=== PATIENT | male | born 2000 | race Caucasian/White ===

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

== ENCOUNTER 2023-01-02 12:53 | Emergency (ER) | payer OTHER ==
--- NOTE | 2023-01-02 13:40 | ED ---
General Adult HPI - General Source: patient, RN notes reviewed Mode of arrival: ambulatory Limitations: no limitations <Curly Garvin - Last Filed: 01/02/23 13:39> <Cecily Edmonds - Last Filed: 01/02/23 19:24> - General Stated complaint: Vomiting w/Blood Time Seen by Provider: 01/02/23 13:39 - History of Present Illness Initial comments: 22-year-old male presents emergency department to complaint of nausea vomiting dehydration. Patient states not been keeping down for last 2 days. Patient states he vomited this morning and noticed bright red blood. Patient does complain of epigastric pain. He states he had an issue in the past which she was told it could be from smoking marijuana. Patient denies a diarrhea no sick contacts. Patient offers no complaints. (Curly Garvin) The patient's and otherwise healthy 22-year-old male presents emergency room with complaints of nausea and vomiting for the last 2 days. he also complains of abdominal pain that started prior to the vomiting as well. Patient denies any fevers or diarrhea. Denies any recent travel or sick contacts. He denies any history of other GI issues. Patient has been diagnosed with the cannaboid hyperemesis in the past and states this feels similar. (Cecily Edmonds) - Related Data Previous Rx's Medication Instructions Recorded Metoclopramide [Reglan] 10 mg PO TID PRN #15 tab 01/02/23 Sucralfate [Carafate] 1 gm PO ACHS #12 ml 01/02/23 Allergies Allergy/AdvReac Type Severity Reaction Status Date / Time No Known Allergies Allergy Verified 01/02/23 14:01 Review of Systems ROS Other: All systems not noted in ROS Statement are negative. <Curly Garvin - Last Filed: 01/02/23 13:39> ROS Other: All systems not noted in ROS Statement are negative. <Cecily Edmonds - Last Filed: 01/02/23 19:24> ROS Statement: Those systems with pertinent positive or pertinent negative responses have been documented in the HPI. General Exam <Curly Garvin - Last Filed: 01/02/23 13:39> Limitations: no limitations General appearance: alert, in no apparent distress Head exam: Present: atraumatic Eye exam: Present: normal appearance, PERRL ENT exam: Present: normal exam, normal oropharynx Neck exam: Present: normal inspection Respiratory exam: Present: normal lung sounds bilaterally Cardiovascular Exam: Present: regular rate, normal rhythm GI/Abdominal exam: Present: soft, tenderness (Mild right lower quadrant abdominal pain. No rebound tenderness. No peritoneal signs. No significant abdominal distention.) Extremities exam: Present: full ROM Back exam: Present: normal inspection, full ROM Neurological exam: Present: alert, oriented X3, CN II-XII intact Psychiatric exam: Present: normal affect, normal mood Skin exam: Present: warm, dry <Cecily Edmonds - Last Filed: 01/02/23 19:24> - General Exam Comments Initial Comments: Visual Physical Exam Vital signs reviewed General: Well-appearing, nontoxic, no acute distress. Head: Normocephalic, atraumatic Eyes: PERRLA, EOMI ENT: Airway patent Chest: Nonlabored breathing Skin: No visual rash, normal skin tone Neuro: Alert and oriented 3 Musculoskeletal: No gross abnormalities (Curly Garvin) Course <Cecily Edmonds - Last Filed: 01/02/23 19:24> Vital Signs 01/02/23 01/02/23 13:58 18:22 Temperature 98.2 F Pulse Rate 66 56 L Respiratory 16 18 Rate Blood Pressure 129/80 108/66 O2 Sat by Pulse 99 96 Oximetry - Reevaluation(s) Reevaluation #1: 01/02/23 18:10 Patient is feeling better after medications. He received IV fluids. He is up moving around without any further vomiting or pain. Patient will be discharged home with [facility] medicine. 01/02/23 19:20 (Cecily Edmonds) Medical Decision Making <Curly Garvin - Last Filed: 01/02/23 13:39> - Lab Data Result diagrams: 01/02/23 14:37 01/02/23 14:37 - Radiology Data Radiology results: report reviewed, image reviewed <Cecily Edmonds - Last Filed: 01/02/23 19:24> - Medical Decision Making I performed a quick note portion of this chart signed Curly Garvin PA-C (Curly Garvin) Was pt. sent in by a medical professional or institution ([facility], [facility], urgent care, hospital, or correction...) When possible be specific @ -[No] Did you speak to anyone other than the patient for history (EMS, parent, family, police, friend...)? What history was obtained from this source @ -[No] Did you review nursing and triage notes (agree or disagree)? Why? @ -[I reviewed and agree with nursing and triage notes] Were old charts reviewed (outside hosp., previous admission, EMS record, old EKG, old radiological studies, urgent care reports/EKG's, correction records)? Report findings @ -[No old charts were reviewed] Differential Diagnosis (chest pain, altered mental status, abdominal pain women, abdominal pain men, vaginal bleeding, weakness, fever, dyspnea, syncope, headache, dizziness, GI bleed, back pain, seizure, CVA, palpatations, mental health, musculoskeletal)? @ -Vomiting, gastritis, appendicitis, [place] and hyperemesis EKG interpreted by me (3pts min.). @ -[As above] X-rays interpreted by me (1pt min.). @ -[None done] CT interpreted by me (1pt min.). @ -CT is negative for any obvious appendicitis mass, bowel obstruction or other acute changes. Radiology report is pending for confirmation of these changes U/S interpreted by me (1pt. min.). @ -[None done] What testing was considered but not performed or refused? (CT, X-rays, U/S, labs)? Why? @ -[None] What meds were considered but not given or refused? Why? @ -[None] Did you discuss the management of the patient with other professionals (professionals i.e. , PA, [facility], lab, RT, psych nurse, social media manager, agricultural chemicals inspector, teacher, commercial escrow officer, case management social worker)? Give summary @ -Discussed patient's symptoms are And disposition with attending ED physician Dr. esteves Was smoking cessation discussed for >3mins.? @ -[No] Was critical care preformed (if so, how long)? @ -[No] Were there social determinants of health that impacted care today? How? (Homelessness, low income, unemployed, alcoholism, drug addiction, transportation, low edu. Level, literacy, decrease access to med. care, prison, rehab)? @ -[No] Was there de-escalation of care discussed even if they declined (Discuss DNR or withdrawal of care, Hospice)? DNR status @ -[No] What co-morbidities impacted this encounter? (DM, HTN, Smoking, COPD, CAD, Cancer, CVA, ARF, Chemo, Hep., AIDS, mental health diagnosis, sleep apnea, morbid obesity)? @ -[None] Was patient admitted / discharged? Hospital course, mention meds given and route, prescriptions, significant lab abnormalities, going to OR and other pertinent info. @ -Patient is feeling better after IV medications and IV fluids. Tolerated fluids prior to discharge. I discussed management at home with the patient. There is no indication for hospitalization is required at this time. Undiagnosed new problem with uncertain prognosis? @ -[No] Drug Therapy requiring intensive monitoring for toxicity (Heparin, Nitro, Insulin, Cardizem)? @ -[No] Were any procedures done? @ -[No] Diagnosis/symptom? @ -cannaboid hyperemesis, vomiting, abdominal pain, drug abuse Acute, or Chronic, or Acute on Chronic? @ -Acute Uncomplicated (without systemic symptoms) or Complicated (systemic symptoms)? @ -Uncomplicated Side effects of treatment? @ -[No] Exacerbation, Progression, or Severe Exacerbation? @ -[No] Poses a threat to life or bodily function? How? (Chest pain, USA, [place], pneumonia, PE, COPD, DKA, ARF, appy, cholecystitis, CVA, Diverticulitis, Homicidal, Suicidal, threat to staff... and all critical care pts) @ -[No] (Cecily Edmonds) - Lab Data Lab Results 01/02/23 01/02/23 Range/Units 14:37 14:37 WBC 17.4 H (4.0-11.0) k/uL RBC 6.08 H (4.30-5.90) m/uL Hgb 17.9 H (13.0-17.5) gm/dL Hct 50.7 (39.0-53.0) % MCV 83.3 (80.0-100.0) fL MCH 29.4 (25.0-35.0) pg MCHC 35.3 (31.0-37.0) g/dL RDW 12.2 (11.5-15.5) % Plt Count 385 (150-450) k/uL MPV 7.0 Neutrophils % 81 % Lymphocytes % 8 % Monocytes % 9 % Eosinophils % 1 % Basophils % 0 % Neutrophils # 14.1 H (1.3-7.7) k/uL Lymphocytes # 1.4 (1.0-4.8) k/uL Monocytes # 1.5 H (0-1.0) k/uL Eosinophils # 0.1 (0-0.7) k/uL Basophils # 0.0 (0-0.2) k/uL Sodium 140 (137-145) mmol/L Potassium 3.8 (3.5-5.1) mmol/L Chloride 91 L (98-107) mmol/L Carbon Dioxide 28 (22-30) mmol/L Anion Gap 21 mmol/L BUN 35 H (9-20) mg/dL Creatinine 1.12 (0.66-1.25) mg/dL Est GFR (CKD-EPI)AfAm >90 (>60 ml/min/1.73 sqM) Est GFR (CKD-EPI)NonAf >90 (>60 ml/min/1.73 sqM) Glucose 125 H (74-99) mg/dL Calcium 11.0 H (8.4-10.2) mg/dL Total Bilirubin 1.9 H (0.2-1.3) mg/dL AST 26 (17-59) U/L ALT 30 (4-49) U/L Alkaline Phosphatase 91 (38-126) U/L Total Protein 9.5 H (6.3-8.2) g/dL Albumin 5.8 H (3.5-5.0) g/dL Lipase 45 (23-300) U/L Disposition <Curly Garvin - Last Filed: 01/02/23 13:39> Is patient prescribed a controlled substance at d/c from ED?: No If prescribed controlled substance>3 days was MAPS reviewed?: No Time of Disposition: 19:23 <Cecily Edmonds - Last Filed: 01/02/23 19:24> Clinical Impression: Cannabinoid hyperemesis syndrome, Vomiting, Drug abuse Disposition: HOME SELF-CARE Condition: Good Instructions (If sedation given, give patient instructions): Acute Nausea and Vomiting (ED), Hyperemesis Gravidarum (ED), Dehydration (ED) Referrals: Joseph Dias [Primary Care Provider] - 1-2 days
[2023-01-02 14:08] VITALS: TEMP 98.2
[2023-01-02 14:50] LABS: Basophils % (A) 0 %; Eosinophils # (A) 0.1 k/uL (0-0.7); Eosinophils % (A) 1 %; HCT 50.7 % (39.0-53.0); HGB 17.9 gm/dL (13.0-17.5); Lymphocytes # (A) 1.4 k/uL (1.0-4.8); Lymphocytes % (A) 8 %; MCH 29.4 pg (25.0-35.0); MCHC 35.3 g/dL (31.0-37.0); MCV 83.3 fL (80.0-100.0); Monocytes # (A) 1.5 k/uL (0-1.0); Monocytes % (A) 9 %; Neutrophils # (A) 14.1 k/uL (1.3-7.7); Neutrophils % (A) 81 %; Platelet Count 385 k/uL (150-450); RBC 6.08 m/uL (4.30-5.90); RDW 12.2 % (11.5-15.5); WBC 17.4 k/uL (4.0-11.0)
[2023-01-02 15:03] LABS: ALT 30 U/L (4-49); AST 26 U/L (17-59); African American GFR (CKD) >90 (>60 ml/min/1.73 sqM); Albumin 5.8 g/dL (3.5-5.0); Alkaline Phosphatase 91 U/L (38-126); Anion Gap 21 mmol/L; Blood Urea Nitrogen 35 mg/dL (9-20); Carbon Dioxide 28 mmol/L (22-30); Chloride 91 mmol/L (98-107); Glucose 125 mg/dL (74-99); Lipase 45 U/L (23-300); Non-African American GFR(CKD) >90 (>60 ml/min/1.73 sqM); Potassium 3.8 mmol/L (3.5-5.1); Sodium 140 mmol/L (137-145); Total Bilirubin 1.9 mg/dL (0.2-1.3); Total Protein 9.5 g/dL (6.3-8.2)
[2023-01-02] MEDS ORDERED: SODIUM CHLORIDE 0.9% 1,000 ML IV ONE (15:47)
[2023-01-02] MEDS ORDERED: METOCLOPRAMIDE 5 MG/ML 2 ML VIAL IVP STA (15:47)
[2023-01-02] MEDS ORDERED: PANTOPRAZOLE 40 MG/10 ML VIAL IVP STA (15:48)
[2023-01-02] MEDS ORDERED: diphenhydrAMINE 50 MG/ML 1 ML VIAL IVP STA (16:23)
--- NOTE | 2023-01-02 17:43 | CT ---
EXAMINATION TYPE: CT abdomen pelvis w con CT DLP: 567.80 mGycm, Automated exposure control for dose reduction was used. DATE OF EXAM: 01/02/2023 5:02 PM COMPARISON: None CLINICAL INDICATION:Male, 22 years old with history of RLQ pain; RLQ PAIN ADN RECTAL BLEEDING. TECHNIQUE: Axial CT of the abdomen and pelvis. Sagittal and coronal reformats were created on a [employer] workstation. Contrast used:100 mL of Isovue 300 with IV Contrast, (none if empty) Oral contrast used: without Oral Contrast (none if empty) FINDINGS: LOWER CHEST: Unremarkable ABDOMEN LIVER: Focal fatty infiltration adjacent to the falciform ligament in segment IVb GALLBLADDER AND BILE DUCTS: Unremarkable. PANCREAS: Unremarkable. SPLEEN: Unremarkable. ADRENAL GLANDS: Unremarkable. KIDNEYS AND URETERS: No evidence of hydronephrosis or renal calculus. The ureters are unremarkable. PELVIS BLADDER: Unremarkable REPRODUCTIVE: Unremarkable. ABDOMEN & PELVIS STOMACH AND BOWEL: No evidence of bowel obstruction. The appendix appears normal. Incompletely disten ded colon noted. PERITONEUM/RETROPERITONEUM: No evidence of pneumoperitoneum or free fluid. VASCULATURE: No evidence of aortic aneurysm. MUSCULOSKELETAL: No acute osseous abnormalities LYMPH NODES: No gross evidence for lymphadenopathy. SOFT TISSUE/ABDOMINAL WALL: Unremarkable IMPRESSION: Incompletely distended: No evidence of gastrointestinal hemorrhage. No definitive acute abdominal pro cess. The appendix is normal. There is no obstructive uropathy.
[2023-01-02 18:28] VITALS: BP 108/66; PULSE 56; RESP 18
[2023-01-02 18:32] LABS: Appearance,Urine Clear (Clear); Bilirubin,Urine Negative (Negative); Blood,Urine Negative (Negative); Color,Urine Colorless; Glucose,Urine (UA) Negative (Negative); Ketones,Urine 3+ (Negative); Leukocyte Esterase,Urine Negative (Negative); Nitrite,Urine Negative (Negative); Protein,Urine Trace (Negative); Urobilinogen,Urine <2.0 mg/dL (<2.0)
[2023-01-02 19:11] LABS: Specific Gravity,Urine >1.050 (1.001-1.035)
[2023-01-02 19:12] LABS: Amphetamine Screen,Urine Detected (NotDetected); Barbiturate Screen,Urine Not Detected (NotDetected); Benzodiazepines Screen,Urine Detected (NotDetected); Cocaine Screen,Urine Not Detected (NotDetected); Methadone Screen, Urine Not Detected (NotDetected); Opiate Screen,Urine Not Detected (NotDetected); Oxycodone Screen, Urine Not Detected (NotDetected); Phencyclidine Screen,Urine Not Detected (NotDetected); Tricyclic Antidepressant,Urine Detected (NotDetected); Urn Cannabinoid Scrn Detected (NotDetected)
== END 2023-01-02 19:53 | disposition home or self-care (01) ==
LOC: EC 12:53
DX: F12.90 Cannabis use, unspecified, uncomplicated (principal); F19.10 Other psychoactive substance abuse, uncomplicated; R11.2 Nausea with vomiting, unspecified; R10.31 Right lower quadrant pain
CPT/HCPCS: 36415; 80053; 83690; 85025; 81003; 80306; 74177; 99284; 96374; 96375 ×2; 96361; J1200; J2765; C9113; Q9967

== ENCOUNTER 2023-01-04 09:07 | Emergency (ER) | payer OTHER ==
[2023-01-04] MEDS ORDERED: ONDANSETRON 4 MG/2 ML VIAL IVP STA (09:32)
[2023-01-04] MEDS ORDERED: PANTOPRAZOLE 40 MG/10 ML VIAL IVP STA (09:32)
[2023-01-04] MEDS ORDERED: MORPHINE SULFATE 4 MG/ML SYRINGE IVP STA (09:32)
[2023-01-04] MEDS ORDERED: SODIUM CHLORIDE 0.9% 1,000 ML IV ONE (09:32)
--- NOTE | 2023-01-04 09:38 | ED ---
General Adult HPI - General Chief complaint: Abdominal Pain Stated complaint: vomiting Time Seen by Provider: 01/04/23 09:24 Source: patient, RN notes reviewed, old records reviewed Mode of arrival: wheelchair - History of Present Illness Initial comments: 22-year-old male presents for evaluation nausea vomiting. Patient has had multiple episodes of vomiting over the past 24-48 hours. He was seen in the emergency department yesterday had workup including laboratory testing and CT of the abdomen and pelvis. Patient states he continues to vomit. He does have upper abdominal pain associated with his mom he says that there has been some blood in his vomit although currently his vomit is clear yellow. Patient reports marijuana use and states he has been told in the past that his vomiting was related to marijuana use. - Related Data Previous Rx's Medication Instructions Recorded Metoclopramide [Reglan] 10 mg PO TID PRN #15 tab 01/02/23 Sucralfate [Carafate] 1 gm PO ACHS #12 ml 01/02/23 Allergies Allergy/AdvReac Type Severity Reaction Status Date / Time No Known Allergies Allergy Verified 01/04/23 09:22 Review of Systems ROS Statement: Those systems with pertinent positive or pertinent negative responses have been documented in the HPI. ROS Other: All systems not noted in ROS Statement are negative. Past Medical History Past Medical History: No Reported History History of Any Multi-Drug Resistant Organisms: None Reported Past Surgical History: No Surgical Hx Reported Past Psychological History: No Psychological Hx Reported Smoking Status: Never smoker, Vaper Past Alcohol Use History: None Reported Past Drug Use History: Marijuana General Exam General appearance: alert, in no apparent distress Head exam: Present: atraumatic, normocephalic Eye exam: Present: normal appearance, PERRL ENT exam: Present: mucous membranes dry Neck exam: Present: normal inspection Respiratory exam: Present: normal lung sounds bilaterally. Absent: respiratory distress, wheezes Cardiovascular Exam: Present: regular rate, normal rhythm GI/Abdominal exam: Present: soft. Absent: distended, tenderness, guarding, rebound Extremities exam: Present: normal inspection, normal capillary refill Neurological exam: Present: alert, oriented X3, CN II-XII intact. Absent: motor sensory deficit Psychiatric exam: Present: normal affect, normal mood Skin exam: Present: warm, dry, intact Course Vital Signs 01/04/23 01/04/23 01/04/23 09:16 10:00 11:16 Temperature 98.5 F Pulse Rate 57 L 56 L 50 L Respiratory 18 18 17 Rate Blood Pressure 143/75 150/83 145/97 O2 Sat by Pulse 99 100 97 Oximetry Medical Decision Making - Medical Decision Making Was pt. sent in by a medical professional or institution (, [facility], [employer], urgent care, hospital, or retirement...) When possible be specific @ -No Did you speak to anyone other than the patient for history (EMS, parent, family, police, friend...)? What history was obtained from this source @ -No Did you review nursing and triage notes (agree or disagree)? Why? @ -I reviewed and agree with nursing and triage notes Were old charts reviewed (outside hosp., previous admission, EMS record, old EKG, old radiological studies, urgent care reports/EKG's, retirement records)? Report findings @CT reviewed from yesterday Differential Diagnosis (chest pain, altered mental status, abdominal pain women, abdominal pain men, vaginal bleeding, weakness, fever, dyspnea, syncope, heada caitlin, dizziness, GI bleed, back pain, seizure, CVA, palpatations, mental health, musculoskeletal)? @ Differential Abdominal Pain Men: Appendicitis, cholecystitis, diverticulosis, ischemic bowel, pancreatitis, hepatitis, UTI, gastroenteritis, AAA, incarcerated hernia, bowel obstruction, constipation, inflammatory bowel, hepatitis, peptic ulcer disease, splenic infarction, perforated viscus, testicular torsion, this is not meant to be an all-inclusive list EKG interpreted by me (3pts min.). @ -As above X-rays interpreted by me (1pt min.). @ -None done CT interpreted by me (1pt min.). @ -None done U/S interpreted by me (1pt. min.). @ -None done What testing was considered but not performed or refused? (CT, X-rays, U/S, labs)? Why? @ -None What meds were considered but not given or refused? Why? @ -None Did you discuss the management of the patient with other professionals (professionals i.e. [facility] Figueroa, COMMERCIAL INTERN, lab, RT, psych nurse, social media strategist, upper marker, teacher, upscale security officer, case management manager)? Give summary @ -No Was smoking cessation discussed for >3mins.? @ -No Was critical care preformed (if so, how long)? @ -No Were there social determinants of health that impacted care today? How? (Homelessness, low income, unemployed, alcoholism, drug addiction, transportation, low edu. Level, literacy, decrease access to med. care, penitentiary, rehab)? @ -No Was there de-escalation of care discussed even if they declined (Discuss DNR or withdrawal of care, Hospice)? DNR status @ -No What co-morbidities impacted this encounter? (DM, HTN, Smoking, COPD, CAD, Cancer, CVA, ARF, Chemo, Hep., AIDS, mental health diagnosis, sleep apnea, morbid obesity)? @ -[Marijuana use Was patient admitted / discharged? Hospital course, mention meds given and route, prescriptions, significant lab abnormalities, going to OR and other pertinent info. @ -[22-year-old male with recurrent nausea vomiting. Patient did receive symptomatic treatment including antiemetics, pain medication, proton pump inhibi tor and IV fluids. He has improved CBC, no leukocytosis, stable hemoglobin. He has minor acidosis without significant electrolyte abnormality. His urinalysis is pending. Patient reevaluated and does feel symptoms are improved. Patient is instructed to abstain from marijuana use, maintain oral hydration, and follow with his primary care provider as well as gastroenterology. Undiagnosed new problem with uncertain prognosis? @ -No Drug Therapy requiring intensive monitoring for toxicity (Heparin, Nitro, Insulin, Cardizem)? @ -No Were any procedures done? @ -No Diagnosis/symptom? @Nausea vomiting Acute, or Chronic, or Acute on Chronic? @ -Acute on chronic Uncomplicated (without systemic symptoms) or Complicated (systemic symptoms)? @ -default Side effects of treatment? @ -No Exacerbation, Progression, or Severe Exacerbation? @ -No Poses a threat to life or bodily function? How? (Chest pain, [place], [place], pneumonia, PE, COPD, DKA, ARF, appy, cholecystitis, CVA, Diverticulitis, Homicidal, Suicidal, threat to staff... and all critical care pts) @ -[Yes, mild risk at this time of dehydration and electrolyte abnormality - Lab Data Result diagrams: 01/04/23 09:34 01/04/23 09:34 Lab Results 01/04/23 01/04/23 Range/Units 09:34 09:34 WBC 7.7 (4.0-11.0) k/uL RBC 5.71 (4.30-5.90) m/uL Hgb 17.3 (13.0-17.5) gm/dL Hct 47.3 (39.0-53.0) % MCV 82.9 (80.0-100.0) fL MCH 30.4 (25.0-35.0) pg MCHC 36.6 (31.0-37.0) g/dL RDW 12.1 (11.5-15.5) % Plt Count 304 (150-450) k/uL MPV 6.9 Neutrophils % 56 % Lymphocytes % 32 % Monocytes % 8 % Eosinophils % 1 % Basophils % 1 % Neutrophils # 4.3 (1.3-7.7) k/uL Lymphocytes # 2.5 (1.0-4.8) k/uL Monocytes # 0.6 (0-1.0) k/uL Eosinophils # 0.1 (0-0.7) k/uL Basophils # 0.0 (0-0.2) k/uL Sodium 135 L (137-145) mmol/L Potassium 3.7 (3.5-5.1) mmol/L Chloride 97 L (98-107) mmol/L Carbon Dioxide 20 L (22-30) mmol/L Anion Gap 18 mmol/L BUN 22 H (9-20) mg/dL Creatinine 0.69 (0.66-1.25) mg/dL Est GFR (CKD-EPI)AfAm >90 (>60 ml/min/1.73 sqM) Est GFR (CKD-EPI)NonAf >90 (>60 ml/min/1.73 sqM) Glucose 126 H (74-99) mg/dL Calcium 9.8 (8.4-10.2) mg/dL Magnesium 2.1 (1.6-2.3) mg/dL Total Bilirubin 2.5 H (0.2-1.3) mg/dL AST 33 (17-59) U/L ALT 28 (4-49) U/L Alkaline Phosphatase 75 (38-126) U/L Total Protein 8.4 H (6.3-8.2) g/dL Albumin 5.0 (3.5-5.0) g/dL Disposition Clinical Impression: Cannabinoid hyperemesis syndrome, Vomiting Disposition: HOME SELF-CARE Condition: Fair Is patient prescribed a controlled substance at d/c from ED?: No Referrals: Joseph Dias [Primary Care Provider] - 1-2 days Elo Franz MD [STAFF PHYSICIAN] - 1-2 days Time of Disposition: 11:36
[2023-01-04 09:52] LABS: Basophils % (A) 1 %; Eosinophils # (A) 0.1 k/uL (0-0.7); Eosinophils % (A) 1 %; HCT 47.3 % (39.0-53.0); HGB 17.3 gm/dL (13.0-17.5); Lymphocytes # (A) 2.5 k/uL (1.0-4.8); Lymphocytes % (A) 32 %; MCH 30.4 pg (25.0-35.0); MCHC 36.6 g/dL (31.0-37.0); MCV 82.9 fL (80.0-100.0); Mean Platelet Volume 6.9; Monocytes # (A) 0.6 k/uL (0-1.0); Monocytes % (A) 8 %; Neutrophils # (A) 4.3 k/uL (1.3-7.7); Neutrophils % (A) 56 %; Platelet Count 304 k/uL (150-450); RBC 5.71 m/uL (4.30-5.90); RDW 12.1 % (11.5-15.5); WBC 7.7 k/uL (4.0-11.0)
[2023-01-04 10:02] LABS: ALT 28 U/L (4-49); African American GFR (CKD) >90 (>60 ml/min/1.73 sqM); Anion Gap 18 mmol/L; Blood Urea Nitrogen 22 mg/dL (9-20); Calcium 9.8 mg/dL (8.4-10.2); Carbon Dioxide 20 mmol/L (22-30); Chloride 97 mmol/L (98-107); Glucose 126 mg/dL (74-99); Non-African American GFR(CKD) >90 (>60 ml/min/1.73 sqM); Sodium 135 mmol/L (137-145); Total Bilirubin 2.5 mg/dL (0.2-1.3); Total Protein 8.4 g/dL (6.3-8.2)
[2023-01-04 10:29] LABS: AST 33 U/L (17-59); Alkaline Phosphatase 75 U/L (38-126)
[2023-01-04 10:30] LABS: Magnesium 2.1 mg/dL (1.6-2.3); Potassium 3.7 mmol/L (3.5-5.1)
[2023-01-04] MEDS ORDERED: KETOROLAC 15 MG/ML 1 ML VIAL IVP STA (11:41)
[2023-01-04 11:57] VITALS: BP 163/97; PULSE 57; RESP 18; TEMP 98.1
[2023-01-04 12:24] LABS: Amorphous Sediment,Urine Rare /hpf; Appearance,Urine Cloudy (Clear); Bacteria,Urine Rare /hpf; Bilirubin,Urine Negative (Negative); Blood,Urine Negative (Negative); Color,Urine Colorless; Glucose,Urine (UA) Negative (Negative); Ketones,Urine 2+ (Negative); Leukocyte Esterase,Urine Negative (Negative); Mucus,Urine Rare /hpf; Nitrite,Urine Negative (Negative); Protein,Urine Negative (Negative); Specific Gravity,Urine 1.014 (1.001-1.035); Urobilinogen,Urine <2.0 mg/dL (<2.0); WBC,Urine <1 /hpf (0-5)
[2023-01-04 12:30] LABS: Amphetamine Screen,Urine Not Detected (NotDetected); Benzodiazepines Screen,Urine Not Detected (NotDetected); Cocaine Screen,Urine Not Detected (NotDetected); Opiate Screen,Urine Detected (NotDetected); Phencyclidine Screen,Urine Not Detected (NotDetected); Urn Cannabinoid Scrn Detected (NotDetected)
[2023-01-04 12:31] LABS: Barbiturate Screen,Urine Not Detected (NotDetected); Methadone Screen, Urine Not Detected (NotDetected); Oxycodone Screen, Urine Not Detected (NotDetected); Tricyclic Antidepressant,Urine Not Detected (NotDetected)
== END 2023-01-04 12:17 | disposition home or self-care (01) ==
LOC: EC 09:07
DX: R11.10 Vomiting, unspecified (principal); F17.290 Nicotine dependence, other tobacco product, uncomplicated; F12.90 Cannabis use, unspecified, uncomplicated
CPT/HCPCS: 36415; 80053; 83735; 85025; 81001; 80306; 99284; 96374; 96375 ×3; 96361; J2270; J2405; J1885; C9113

== ENCOUNTER 2023-01-04 12:19 | Emergency (ER) | payer OTHER ==
[2023-01-04] MEDS ORDERED: ONDANSETRON ODT 4 MG TAB PO STA (12:57)
--- NOTE | 2023-01-04 13:58 | ED ---
General Adult HPI - General Chief complaint: Nausea/Vomiting/Diarrhea Stated complaint: abd pain Time Seen by Provider: 01/04/23 12:48 Source: patient, RN notes reviewed, old records reviewed Mode of arrival: ambulatory Limitations: no limitations - History of Present Illness Initial comments: 22-year-old male presenting for evaluation nausea. No vomiting. Patient states that he would like to rest. He does report persistent pain but states that it is improved from prior. He has nausea without vomiting. No fever. No worsening of symptoms. - Related Data Previous Rx's Medication Instructions Recorded Metoclopramide [Reglan] 10 mg PO TID PRN #15 tab 01/02/23 Sucralfate [Carafate] 1 gm PO ACHS #12 ml 01/02/23 Ondansetron Odt [Zofran Odt] 4 mg PO Q8HR PRN #10 tab 01/04/23 Allergies Allergy/AdvReac Type Severity Reaction Status Date / Time No Known Allergies Allergy Verified 01/04/23 09:22 Review of Systems ROS Statement: Those systems with pertinent positive or pertinent negative responses have been documented in the HPI. ROS Other: All systems not noted in ROS Statement are negative. Past Medical History Past Medical History: No Reported History History of Any Multi-Drug Resistant Organisms: None Reported Past Surgical History: No Surgical Hx Reported Past Psychological History: No Psychological Hx Reported Smoking Status: Never smoker, Vaper Past Alcohol Use History: None Reported Past Drug Use History: Marijuana General Exam Limitations: no limitations General appearance: alert, in no apparent distress Head exam: Present: atraumatic, normocephalic Eye exam: Present: normal appearance, PERRL ENT exam: Present: normal exam Respiratory exam: Present: normal lung sounds bilaterally. Absent: respiratory distress, wheezes Cardiovascular Exam: Present: regular rate, normal rhythm GI/Abdominal exam: Present: soft. Absent: distended, tenderness, guarding, rebound Extremities exam: Present: normal inspection, normal capillary refill Neurological exam: Present: alert, oriented X3, CN II-XII intact. Absent: motor sensory deficit Psychiatric exam: Present: normal affect, normal mood Skin exam: Present: warm, dry, intact. Absent: cyanosis, diaphoretic Course Vital Signs 01/04/23 12:23 Temperature 97.9 F Pulse Rate 58 L Respiratory 16 Rate Blood Pressure 157/93 O2 Sat by Pulse 100 Oximetry Medical Decision Making - Medical Decision Making Was pt. sent in by a medical professional or institution ([facility], [facility], urgent care, hospital, or [place] [facility] facility...) When possible be specific @ -No Did you speak to anyone other than the patient for history (EMS, parent, family, police, friend...)? What history was obtained from this source @ -No Did you review nursing and triage notes (agree or disagree)? Why? @ -I reviewed and agree with nursing and triage notes Were old charts reviewed (outside hosp., previous admission, EMS record, old EKG, old radiological studies, urgent care reports/EKG's, [place] [facility] records)? Report findings @ -No old charts were reviewed Differential Diagnosis (chest pain, altered mental status, abdominal pain women, abdominal pain men, vaginal bleeding, weakness, fever, dyspnea, syncope, headache, dizziness, GI bleed, back pain, seizure, CVA, palpatations, mental health, musculoskeletal)? @Cannabis hyperemesis, nausea vomiting, gastroenteritis EKG interpreted by me (3pts min.). @ -As above X-rays interpreted by me (1pt min.). @ -None done CT interpreted by me (1pt min.). @ -None done U/S interpreted by me (1pt. min.). @ -None done What testing was considered but not performed or refused? (CT, X-rays, U/S, labs)? Why? @ -None What meds were considered but not given or refused? Why? @ -None Did you discuss the management of the patient with other professionals (professionals i.e. [facility] Figueroa, [facility], lab, RT, psych nurse, social media designer, line maintainer, teacher, workers' compensation hearings officer, transplant case manager)? Give summary @ -No Was smoking cessation discussed for >3mins.? @ -No Was critical care preformed (if so, how long)? @ -No Were there social determinants of health that impacted care today? How? (Homelessness, low income, unemployed, alcoholism, drug addiction, transportation, low edu. Level, literacy, decrease access to med. care, long term, rehab)? @ -No Was there de-escalation of care discussed even if they declined (Discuss DNR or withdrawal of care, Hospice)? DNR status @ -No What co-morbidities impacted this encounter? (DM, HTN, Smoking, COPD, CAD, Cancer, CVA, ARF, Chemo, Hep., AIDS, mental health diagnosis, sleep apnea, morbid obesity)? @Marijuana use, recurrent episodes of nausea and vomiting. Was patient admitted / discharged? Hospital course, mention meds given and route, prescriptions, significant lab abnormalities, going to OR and other pertinent info. @ -Patient states symptoms are improved. Allowed to rest in the emergency department, given oral disintegrating Zofran. Will prescribe Zofran and will discharge patient. Undiagnosed new problem with uncertain prognosis? @ -No Drug Therapy requiring intensive monitoring for toxicity (Heparin, Nitro, Insulin, Cardizem)? @ -No Were any procedures done? @ -No Diagnosis/symptom? @ -[Nausea Acute, or Chronic, or Acute on Chronic? @ -chronic Uncomplicated (without systemic symptoms) or Complicated (systemic symptoms)? @ -default Side effects of treatment? @ -No Exacerbation, Progression, or Severe Exacerbation? @ -No Poses a threat to life or bodily function? How? (Chest pain, [place], [place], pneumonia, PE, COPD, DKA, ARF, appy, cholecystitis, CVA, Diverticulitis, Homicidal, Suicidal, threat to staff... and all critical care pts) @ -No Disposition Clinical Impression: Nausea Disposition: HOME SELF-CARE Condition: Fair Instructions (If sedation given, give patient instructions): Acute Nausea and Vomiting (ED) Prescriptions: Ondansetron Odt [Zofran Odt] 4 mg PO Q8HR PRN #10 tab PRN Reason: Vomiting Is patient prescribed a controlled substance at d/c from ED?: No Referrals: Joseph Dias [Primary Care Provider] - 1-2 days Time of Disposition: 14:30
[2023-01-04 15:30] VITALS: BP 119/63; PULSE 56; RESP 18; TEMP 98.2
== END 2023-01-04 15:22 | disposition home or self-care (01) ==
LOC: EC 12:19
DX: R11.2 Nausea with vomiting, unspecified (principal); F12.90 Cannabis use, unspecified, uncomplicated
CPT/HCPCS: 99283

== ENCOUNTER 2023-01-05 08:20 | Emergency (ER) | payer OTHER ==
[2023-01-05 08:29] VITALS: TEMP 97.7
[2023-01-05] MEDS ORDERED: droPERidol 5 MG/2 ML VIAL IVP ONE (08:40)
[2023-01-05] MEDS ORDERED: MAG HYDROX/AL HYDROX/SIMETH 30 ML, HYOSCYAMINE ELIXIR 10 ML, LIDOCAINE 2% GLYDO JELLY 1... PO STA ×3 (08:40)
[2023-01-05] MEDS ORDERED: SODIUM CHLORIDE 0.9% 2,000 ML IV STA (08:40)
[2023-01-05] MEDS ORDERED: FAMOTIDINE 20 MG/2 ML VIAL IV STA (08:40)
--- NOTE | 2023-01-05 09:03 | ED ---
Abdominal Pain HPI - General Chief Complaint: Abdominal Pain Stated Complaint: abd pain Time Seen by Provider: 01/05/23 08:23 Source: patient, RN notes reviewed Mode of arrival: wheelchair Limitations: no limitations - History of Present Illness Initial Comments: 22-year-old male presents emergency from chief nausea vomiting abdominal pain. 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 Patient states she's been told passes from marijuana use. Patient went of epigastric pain, burning sensation. Patient had repeat laboratory studies, CAT scan. Patient states that he cannot tolerate the oral Zofran to tase bad. Patient states that he's continues to have persistent nausea vomiting denies any lower abdominal pain no fever no chest pain. - Related Data Previous Rx's Medication Instructions Recorded Metoclopramide [Reglan] 10 mg PO TID PRN #15 tab 01/02/23 Sucralfate [Carafate] 1 gm PO ACHS #12 ml 01/02/23 Ondansetron Odt [Zofran Odt] 4 mg PO Q8HR PRN #10 tab 01/04/23 Allergies Allergy/AdvReac Type Severity Reaction Status Date / Time No Known Allergies Allergy Verified 01/05/23 08:25 Review of Systems ROS Statement: Those systems with pertinent positive or pertinent negative responses have been documented in the HPI. ROS Other: All systems not noted in ROS Statement are negative. Past Medical History Past Medical History: No Reported History History of Any Multi-Drug Resistant Organisms: None Reported Past Surgical History: No Surgical Hx Reported Past Psychological History: No Psychological Hx Reported Smoking Status: Never smoker, Vaper Past Alcohol Use History: None Reported Past Drug Use History: Marijuana General Exam Limitations: no limitations General appearance: alert, in no apparent distress Head exam: Present: atraumatic, normocephalic, normal inspection Eye exam: Present: normal appearance, PERRL, EOMI. Absent: scleral icterus, conjunctival injection, periorbital swelling ENT exam: Present: normal exam, normal oropharynx, mucous membranes moist Neck exam: Present: normal inspection, full ROM. Absent: tenderness, meningismus, lymphadenopathy Respiratory exam: Present: normal lung sounds bilaterally. Absent: respiratory distress, wheezes, rales, rhonchi, stridor Cardiovascular Exam: Present: regular rate, normal rhythm, normal heart sounds. Absent: systolic murmur, diastolic murmur, rubs, gallop, clicks GI/Abdominal exam: Present: soft, tenderness, normal bowel sounds. Absent: distended, guarding, rebound, rigid Back exam: Absent: CVA tenderness (R), CVA tenderness (L) Course Vital Signs 01/05/23 01/05/23 01/05/23 08:25 08:40 09:27 Temperature 97.7 F Pulse Rate 63 68 86 Respiratory 18 16 20 Rate Blood Pressure 156/95 150/100 113/67 O2 Sat by Pulse 99 98 98 Oximetry Medical Decision Making - Medical Decision Making Was pt. sent in by a medical professional or institution (, [facility], [facility], urgent care, hospital, or [facility]...) When possible be specific @ -No Did you speak to anyone other than the patient for history (EMS, parent, family, police, friend...)? What history was obtained from this source @ -No Did you review nursing and triage notes (agree or disagree)? Why? @ -I reviewed and agree with nursing and triage notes Were old charts reviewed (outside hosp., previous admission, EMS record, old EKG, old radiological studies, urgent care reports/EKG's, [facility] records)? Report findings @ -Reevaluated prior imaging, studies Differential Diagnosis (chest pain, altered mental status, abdominal pain women, abdominal pain men, vaginal bleeding, weakness, fever, dyspnea, syncope, headache, dizziness, GI bleed, back pain, seizure, CVA, palpatations, mental h ealth, musculoskeletal)? @ -Cannabis induced hyperemesis, nausea vomiting, gastric enteritis EKG interpreted by me (3pts min.). @ -None X-rays interpreted by me (1pt min.). @ -None done CT interpreted by me (1pt min.). @ -None done U/S interpreted by me (1pt. min.). @ -None done What testing was considered but not performed or refused? (CT, X-rays, U/S, labs)? Why? @ -None What meds were considered but not given or refused? Why? @ -None Did you discuss the management of the patient with other professionals (professionals i.e. , [facility], [facility]IATOR TESTER, lab, RT, psych nurse, social work assistant, sales training coordinator, teacher, electronic warfare officer, director case)? Give summary @ -No Was smoking cessation discussed for >3mins.? @ -No Was critical care preformed (if so, how long)? @ -No Were there social determinants of health that impacted care today? How? (Homelessness, low income, unemployed, alcoholism, drug addiction, transportation, low edu. Level, literacy, decrease access to med. care, care home, rehab)? @ -No Was there de-escalation of care discussed even if they declined (Discuss DNR or withdrawal of care, Hospice)? DNR status @ -No What co-morbidities impacted this encounter? (DM, HTN, Smoking, COPD, CAD, Cancer, CVA, ARF, Chemo, Hep., AIDS, mental health diagnosis, sleep apnea, morbid obesity)? @ -None Was patient admitted / discharged? Hospital course, mention meds given and route, prescriptions, significant lab abnormalities, going to OR and other pertinent info. @ -Discharge patient's had recurrent emesis related to cannabis use. Patient advised to refrain using cannabis he has Zofran and may use Maalox [id number] for GI upset. Undiagnosed new problem with uncertain prognosis? @ -No Drug Therapy requiring intensive monitoring for toxicity (Heparin, Nitro, Insulin, Cardizem)? @ -No Were any procedures done? @ -No Diagnosis/symptom? @ -Nausea vomiting Acute, or Chronic, or Acute on Chronic? @ -Acute Uncomplicated (without systemic symptoms) or Complicated (systemic symptoms)? @ -Uncomplicated Side effects of treatment? @ -No Exacerbation, Progression, or Severe Exacerbation? @ -No Poses a threat to life or bodily function? How? (Chest pain, [place], [place], pneumonia, PE, COPD, DKA, ARF, appy, cholecystitis, CVA, Diverticulitis, Homicidal, Suicidal, threat to staff... and all critical care pts) @ -No - Lab Data Result diagrams: 01/05/23 08:40 01/05/23 08:40 Lab Results 01/05/23 01/05/23 01/05/23 Range/Units 08:40 08:40 08:47 WBC 10.4 (4.0-11.0) k/uL RBC 5.68 (4.30-5.90) m/uL Hgb 17.0 (13.0-17.5) gm/dL Hct 47.7 (39.0-53.0) % MCV 84.0 (80.0-100.0) fL MCH 30.0 (25.0-35.0) pg MCHC 35.7 (31.0-37.0) g/dL RDW 12.1 (11.5-15.5) % Plt Count 316 (150-450) k/uL MPV 7.0 Neutrophils % 45 % Lymphocytes % 41 % Monocytes % 8 % Eosinophils % 2 % Basophils % 1 % Neutrophils # 4.7 (1.3-7.7) k/uL Lymphocytes # 4.2 (1.0-4.8) k/uL Monocytes # 0.8 (0-1.0) k/uL Eosinophils # 0.2 (0-0.7) k/uL Basophils # 0.1 (0-0.2) k/uL Sodium 138 (137-145) mmol/L Potassium 3.6 (3.5-5.1) mmol/L Chloride 101 (98-107) mmol/L Carbon Dioxide 21 L (22-30) mmol/L Anion Gap 16 mmol/L BUN 12 (9-20) mg/dL Creatinine 0.76 (0.66-1.25) mg/dL Est GFR (CKD-EPI)AfAm >90 (>60 ml/min/1.73 sqM) Est GFR (CKD-EPI)NonAf >90 (>60 ml/min/1.73 sqM) Glucose 117 H (74-99) mg/dL Calcium 9.6 (8.4-10.2) mg/dL Total Bilirubin 1.1 (0.2-1.3) mg/dL AST 23 (17-59) U/L ALT 27 (4-49) U/L Alkaline Phosphatase 80 (38-126) U/L Total Protein 7.5 (6.3-8.2) g/dL Albumin 4.8 (3.5-5.0) g/dL Lipase 57 (23-300) U/L Urine Color Colorless Urine Appearance Clear (Clear) Urine pH 7.0 (5.0-8.0) Ur Specific Minetto 1.008 (1.001-1.035) Urine Protein Negative (Negative) Urine Glucose (UA) Negative (Negative) Urine Ketones Negative (Negative) Urine Blood Negative (Negative) Urine Nitrite Negative (Negative) Urine Bilirubin Negative (Negative) Urine Urobilinogen <2.0 (<2.0) mg/dL Ur Leukocyte Esterase Negative (Negative) Disposition Clinical Impression: Cannabinoid hyperemesis syndrome Disposition: HOME SELF-CARE Condition: Stable Instructions (If sedation given, give patient instructions): Acute Nausea and Vomiting (ED) Additional Instructions: Please return to the Emergency Department if symptoms worsen or any other concerns. Is patient prescribed a controlled substance at d/c from ED?: No Referrals: Joseph Dias [Primary Care Provider] - 1-2 days Time of Disposition: 10:38
[2023-01-05 09:07] LABS: Basophils # (A) 0.1 k/uL (0-0.2); Basophils % (A) 1 %; Eosinophils # (A) 0.2 k/uL (0-0.7); Eosinophils % (A) 2 %; HCT 47.7 % (39.0-53.0); Lymphocytes # (A) 4.2 k/uL (1.0-4.8); Lymphocytes % (A) 41 %; MCHC 35.7 g/dL (31.0-37.0); Monocytes # (A) 0.8 k/uL (0-1.0); Monocytes % (A) 8 %; Neutrophils # (A) 4.7 k/uL (1.3-7.7); Neutrophils % (A) 45 %; Platelet Count 316 k/uL (150-450); RBC 5.68 m/uL (4.30-5.90); RDW 12.1 % (11.5-15.5); WBC 10.4 k/uL (4.0-11.0)
[2023-01-05 09:39] LABS: ALT 27 U/L (4-49); AST 23 U/L (17-59); African American GFR (CKD) >90 (>60 ml/min/1.73 sqM); Albumin 4.8 g/dL (3.5-5.0); Alkaline Phosphatase 80 U/L (38-126); Anion Gap 16 mmol/L; Blood Urea Nitrogen 12 mg/dL (9-20); Calcium 9.6 mg/dL (8.4-10.2); Carbon Dioxide 21 mmol/L (22-30); Chloride 101 mmol/L (98-107); Glucose 117 mg/dL (74-99); Lipase 57 U/L (23-300); Non-African American GFR(CKD) >90 (>60 ml/min/1.73 sqM); Potassium 3.6 mmol/L (3.5-5.1); Sodium 138 mmol/L (137-145); Total Bilirubin 1.1 mg/dL (0.2-1.3); Total Protein 7.5 g/dL (6.3-8.2)
[2023-01-05 09:46] LABS: Appearance,Urine Clear (Clear); Bilirubin,Urine Negative (Negative); Blood,Urine Negative (Negative); Color,Urine Colorless; Glucose,Urine (UA) Negative (Negative); Ketones,Urine Negative (Negative); Leukocyte Esterase,Urine Negative (Negative); Nitrite,Urine Negative (Negative); Protein,Urine Negative (Negative); Specific Gravity,Urine 1.008 (1.001-1.035); Urobilinogen,Urine <2.0 mg/dL (<2.0)
[2023-01-05 10:42] VITALS: RESP 16
[2023-01-05 11:07] VITALS: BP 138/68; PULSE 60
== END 2023-01-05 11:02 | disposition home or self-care (01) ==
LOC: EC 08:20
DX: F12.90 Cannabis use, unspecified, uncomplicated (principal); R11.2 Nausea with vomiting, unspecified; F17.290 Nicotine dependence, other tobacco product, uncomplicated
CPT/HCPCS: 36415; 80053; 83690; 85025; 81003; 99284; 96374; 96375; 96361 ×2; J3490; J1790

== ENCOUNTER 2023-04-14 13:12 | Emergency (ER) | payer OTHER ==
--- NOTE | 2023-04-14 13:20 | ED ---
Nausea/Vomiting/Diarrhea HPI - General Source: patient, RN notes reviewed <Edilberto Pacheco - Last Filed: 04/14/23 13:18> - General Source: patient, RN notes reviewed Mode of arrival: ambulatory Limitations: no limitations - History of Present Illness MD complaint: nausea, vomiting <Pam Cobos - Last Filed: 04/14/23 17:14> - General Chief complaint: Nausea/Vomiting/Diarrhea Stated complaint: vomiting, dizzy, weakness Time Seen by Provider: 04/14/23 13:18 - History of Present Illness Initial comments: Patient is a 22-year-old male presented ER with chief complaint of nausea and vomiting. Patient states her past couple days he has not been feeling well. He states he has been experiencing chills and sore throat. (Edilberto Pacheco) This is a 22-year-old male who presents to the emergency department for nausea and vomiting. States that this started 4 days ago and he has not been able to keep anything down. Reports minor associated diarrhea. He has generalized abdominal discomfort from all of the vomiting, and describes this as more of a soreness. He has not measured any fevers, but does report chills. Denies any coughing or congestion. (Pam Cobos) - Related Data Previous Rx's Medication Instructions Recorded Metoclopramide [Reglan] 10 mg PO TID PRN #15 tab 01/02/23 Sucralfate [Carafate] 1 gm PO ACHS #12 ml 01/02/23 Ondansetron Odt [Zofran Odt] 4 mg PO Q8HR PRN #10 tab 01/04/23 Ondansetron Odt [Zofran Odt] 4 mg PO Q8HR PRN #15 tab 04/14/23 Allergies Allergy/AdvReac Type Severity Reaction Status Date / Time No Known Allergies Allergy Verified 04/14/23 13:25 Review of Systems ROS Other: All systems not noted in ROS Statement are negative. <Edilebrto Pacheco - Last Filed: 04/14/23 13:18> ROS Other: All systems not noted in ROS Statement are negative. <Pam Cobos - Last Filed: 04/14/23 17:14> ROS Statement: Those systems with pertinent positive or pertinent negative responses have been documented in the HPI. Past Medical History Past Medical History: No Reported History History of Any Multi-Drug Resistant Organisms: None Reported Past Surgical History: No Surgical Hx Reported Past Psychological History: No Psychological Hx Reported Smoking Status: Never smoker, Vaper Past Alcohol Use History: None Reported Past Drug Use History: Marijuana <Edilberto Pacheco - Last Filed: 04/14/23 13:18> General Exam <Edliberto Pacheco - Last Filed: 04/14/23 13:18> Limitations: no limitations General appearance: alert, in no apparent distress Head exam: Present: atraumatic, normocephalic, normal inspection Respiratory exam: Present: normal lung sounds bilaterally. Absent: respiratory distress, wheezes, rales, rhonchi, stridor Cardiovascular Exam: Present: regular rate, normal rhythm, normal heart sounds. Absent: systolic murmur, diastolic murmur, rubs, gallop, clicks GI/Abdominal exam: Present: soft, normal bowel sounds. Absent: distended, tenderness, guarding, rebound, rigid Neurological exam: Present: alert, oriented X3, CN II-XII intact Psychiatric exam: Present: normal affect, normal mood Skin exam: Present: warm, dry, intact, normal color. Absent: rash <Pam Cobos - Last Filed: 04/14/23 17:14> - General Exam Comments Initial Comments: Visual Physical Exam Vital signs reviewed General: Well-appearing, nontoxic, no acute distress. Head: Normocephalic, atraumatic Eyes: PERRLA, EOMI ENT: Airway patent Chest: Nonlabored breathing Skin: No visual rash, normal skin tone Neuro: Alert and oriented 3 Musculoskeletal: No gross abnormalities (Edilberto Pacheco) Course Vital Signs 04/14/23 04/14/23 13:22 17:05 Temperature 97.0 F L 97.9 F Pulse Rate 69 76 Respiratory 18 18 Rate Blood Pressure 126/68 105/65 O2 Sat by Pulse 96 97 Oximetry Medical Decision Making <Edilberto Pacheco - Last Filed: 04/14/23 13:18> - Lab Data Result diagrams: 04/14/23 15:15 04/14/23 15:15 <Pam Cobos - Last Filed: 04/14/23 17:14> - Medical Decision Making I performed the quick note portion of the exam. Electronically signed by Edilberto Pacheco PA-C (Edilberto Pacheco) This is a 22-year-old male who presents to the emergency department for nausea and vomiting. Was pt. sent in by a medical professional or institution? @ -No Did you speak to anyone other than the patient for history? @ -No Did you review nursing and triage notes? @ -Yes, and I agree, it is accurate with regards to the patient's symptoms. Were old charts reviewed? @ -No Differential Diagnosis? @ -Differential Nausea and Vomiting: Gastroenteritis, cholecystitis, appendicitis, pancreatitis, migraine, benign positional vertigo, food borne illness, pyelonephritis, irritable bowel syndrome, influenza, Covid, GERD, incarcerated hernia, intestinal obstruction, this is not meant to be an all-inclusive list. EKG interpreted by me (3pts min.)? @ -EKG interpreted by me demonstrating the following: Sinus rhythm. Ventricular rate 61 beats per minute, OR interval 134 ms, QRS duration 110 ms, QTC 406 ms. X-rays interpreted by me (1pt min.)? @ -Chest x-ray obtained, my interpretation identifies no localized consolidations or infiltrates. CT interpreted by me (1pt min.)? @ -Not obtained U/S interpreted by me (1pt. min.)? @ -Not obtained What testing was considered but not performed? (CT, X-rays, U/S, labs)? Why? @ -None What meds were considered but not given? Why? @ -None Did you discuss the management of the patient with other professionals? @ -No Did you reconcile home meds? @ -No Was smoking cessation discussed for >3mins.? @ -No Was critical care preformed (if so, how long)? @ -No Were there social determinants of health that impacted care today? How? (Homelessness, low income, unemployed, alcoholism, drug addiction, transportation, low edu. Level, literacy, decrease access to med. care, penitentiary, rehab)? @ -No Was there de-escalation of care discussed even if they declined? (Discuss DNR or withdrawal of care, Hospice)? @ -No What co-morbidities impacted this encounter? (DM, HTN, Smoking, COPD, CAD, Cancer, CVA, Hep., AIDS, mental health diagnosis, sleep apnea, morbid obesity)? @ -None Was patient admitted / discharged? @ -Discharged. Lab work obtained revealing leukocytosis and signs of dehydration. Lab work was otherwise fairly unremarkable. Chest x-ray reveals no acute process. Patient had no abdominal tenderness on exam. He was treated with IV fluids, Zofran, Toradol, and famotidine, and essentially had resolution of symptoms. He was tolerating oral intake afterwards and felt stable for discharge home. Prescription for Zofran provided with dosing instructions reviewed. He is advised to slowly advance his diet as tolerated and remain well-hydrated. Patient discharged home in stable condition. Undiagnosed new problem with uncertain prognosis? @ -None Drug Therapy requiring intensive monitoring for toxicity (Heparin, Nitro, Insulin, Cardizem)? @ -None Were any procedures done? @ -None Diagnosis/symptom? @ -Nausea and vomiting Acute, or Chronic, or Acute on Chronic? @ -Acute Uncomplicated (without systemic symptoms) or Complicated (systemic symptoms)? @ -Uncomplicated Side effects of treatment? @ -None Exacerbation, Progression, or Severe Exacerbation] @ -Not applicable Poses a threat to life or bodily function? @ -No Return precautions reviewed in depth, the patient is instructed to return to the emergency department with any new, worsening, or concerning symptoms. Patient verbalized understanding. This case was discussed in detail with the attending ED physician, Dr. Benitez. Presentation, findings, and treatment plan discussed in detail as well. (Pam Cobos) - Lab Data Lab Results 04/14/23 04/14/23 04/14/23 Range/Units 15:15 15:15 15:15 WBC 16.7 H (4.0-11.0) k/uL RBC 5.91 H (4.30-5.90) m/uL Hgb 17.4 (13.0-17.5) gm/dL Hct 48.6 (39.0-53.0) % MCV 82.3 (80.0-100.0) fL MCH 29.5 (25.0-35.0) pg MCHC 35.8 (31.0-37.0) g/dL RDW 11.8 (11.5-15.5) % Plt Count 352 (150-450) k/uL MPV 6.7 Neutrophils % 80 % Lymphocytes % 9 % Monocytes % 9 % Eosinophils % 0 % Basophils % 0 % Neutrophils # 13.4 H (1.3-7.7) k/uL Lymphocytes # 1.5 (1.0-4.8) k/uL Monocytes # 1.5 H (0-1.0) k/uL Eosinophils # 0.0 (0-0.7) k/uL Basophils # 0.0 (0-0.2) k/uL Sodium 139 (137-145) mmol/L Potassium 3.5 (3.5-5.1) mmol/L Chloride 93 L (98-107) mmol/L Carbon Dioxide 23 (22-30) mmol/L Anion Gap 23 mmol/L BUN 31 H (9-20) mg/dL Creatinine 0.85 (0.66-1.25) mg/dL Est GFR (CKD-EPI)AfAm >90 (>60 ml/min/1.73 sqM) Est GFR (CKD-EPI)NonAf >90 (>60 ml/min/1.73 sqM) Glucose 106 H (74-99) mg/dL Calcium 10.7 H (8.4-10.2) mg/dL Magnesium 1.8 (1.6-2.3) mg/dL Total Bilirubin 2.1 H (0.2-1.3) mg/dL AST 25 (17-59) U/L ALT 26 (4-49) U/L Alkaline Phosphatase 103 (38-126) U/L Total Protein 9.2 H (6.3-8.2) g/dL Albumin 5.6 H (3.5-5.0) g/dL Amylase 60 (30-110) U/L Lipase 30 (23-300) U/L Influenza Type A (PCR) Not Detected (Not Detectd) Influenza Type B (PCR) Not Detected (Not Detectd) RSV (PCR) Not Detected (Not Detectd) SARS-CoV-2 (PCR) Not Detected (Not Detectd) Disposition <Edilberto Pacheco - Last Filed: 04/14/23 13:18> Is patient prescribed a controlled substance at d/c from ED?: No Time of Disposition: 16:17 <Pam Cobos - Last Filed: 04/14/23 17:14> Clinical Impression: Nausea and vomiting Disposition: HOME SELF-CARE Instructions (If sedation given, give patient instructions): Acute Nausea and Vomiting (ED) Additional Instructions: Return to the emergency department with any new, worsening, or concerning symptoms. You can take the Zofran up to every 8 hours as needed for nausea and vomiting. Slowly advance your diet as tolerated and remain well-hydrated. Follow up with your primary care provider in 1-2 days. Prescriptions: Ondansetron Odt [Zofran Odt] 4 mg PO Q8HR PRN #15 tab PRN Reason: Nausea And Vomiting Referrals: Joseph Dias [Primary Care Provider] - 1-2 days
[2023-04-14 13:29] VITALS: RESP 18
[2023-04-14] MEDS ORDERED: KETOROLAC 15 MG/ML 1 ML VIAL IVP STA (15:12)
[2023-04-14] MEDS ORDERED: ONDANSETRON 4 MG/2 ML VIAL IVP STA (15:12)
[2023-04-14] MEDS ORDERED: FAMOTIDINE 20 MG/2 ML VIAL IV STA (15:12)
[2023-04-14] MEDS ORDERED: SODIUM CHLORIDE 0.9% 1,000 ML IV STA (15:12)
--- NOTE | 2023-04-14 15:13 | XR ---
EXAMINATION TYPE: XR chest 2V DATE OF EXAM: 04/14/2023 COMPARISON: None INDICATION: Cough vomiting TECHNIQUE: Frontal and lateral views of the chest are obtained. FINDINGS: The heart size is normal. The pulmonary vasculature is normal. The lungs are clear. IMPRESSION: 1. No acute pulmonary process.
[2023-04-14 15:38] LABS: Basophils % (A) 0 %; Eosinophils % (A) 0 %; HCT 48.6 % (39.0-53.0); HGB 17.4 gm/dL (13.0-17.5); Lymphocytes # (A) 1.5 k/uL (1.0-4.8); Lymphocytes % (A) 9 %; MCH 29.5 pg (25.0-35.0); MCHC 35.8 g/dL (31.0-37.0); MCV 82.3 fL (80.0-100.0); Mean Platelet Volume 6.7; Monocytes # (A) 1.5 k/uL (0-1.0); Monocytes % (A) 9 %; Neutrophils # (A) 13.4 k/uL (1.3-7.7); Neutrophils % (A) 80 %; Platelet Count 352 k/uL (150-450); RBC 5.91 m/uL (4.30-5.90); RDW 11.8 % (11.5-15.5); WBC 16.7 k/uL (4.0-11.0)
[2023-04-14 15:58] LABS: ALT 26 U/L (4-49); AST 25 U/L (17-59); African American GFR (CKD) >90 (>60 ml/min/1.73 sqM); Albumin 5.6 g/dL (3.5-5.0); Alkaline Phosphatase 103 U/L (38-126); Amylase 60 U/L (30-110); Anion Gap 23 mmol/L; Blood Urea Nitrogen 31 mg/dL (9-20); Calcium 10.7 mg/dL (8.4-10.2); Carbon Dioxide 23 mmol/L (22-30); Chloride 93 mmol/L (98-107); Glucose 106 mg/dL (74-99); Lipase 30 U/L (23-300); Magnesium 1.8 mg/dL (1.6-2.3); Non-African American GFR(CKD) >90 (>60 ml/min/1.73 sqM); Potassium 3.5 mmol/L (3.5-5.1); Sodium 139 mmol/L (137-145); Total Bilirubin 2.1 mg/dL (0.2-1.3); Total Protein 9.2 g/dL (6.3-8.2)
[2023-04-14] MEDS ORDERED: ONDANSETRON 4 MG ODT STARTER PACK 2 TAB BTL PO STA (16:54)
[2023-04-14 17:23] VITALS: BP 105/65; PULSE 76; TEMP 97.9
== END 2023-04-14 17:06 | disposition home or self-care (01) ==
LOC: EC 13:12
DX: R11.2 Nausea with vomiting, unspecified (principal); I45.10 Unspecified right bundle-branch block; F17.290 Nicotine dependence, other tobacco product, uncomplicated; F12.90 Cannabis use, unspecified, uncomplicated; Z20.822 Contact with and (suspected) exposure to COVID-19
CPT/HCPCS: 36415; 93005; 80053; 82150; 83690; 83735; 85025; 87636; 71046; 99284; 96374; 96375 ×2; 96361; J2405; J3490; J1885; S0119

== ENCOUNTER 2023-06-03 16:06 | Emergency (ER) | payer OTHER ==
[2023-06-03 16:27] VITALS: BP 153/89; PULSE 72; RESP 20; TEMP 98.8
--- NOTE | 2023-06-03 16:38 | ED ---
Nausea/Vomiting/Diarrhea HPI - General Source: patient, RN notes reviewed Mode of arrival: ambulatory Limitations: no limitations <Susannah Pacheco - Last Filed: 06/03/23 16:37> <Fide Velarde - Last Filed: 06/04/23 04:37> - General Chief complaint: Nausea/Vomiting/Diarrhea Stated complaint: Vomiting Time Seen by Provider: 06/03/23 16:38 - History of Present Illness Initial comments: Patient is a 22-year-old male presented to ER with a chief complaint of nausea and vomiting. He also is reporting cannot move his hands. (Susannah Pacheco) 22-year-old male presenting with chief complaint of nausea and vomiting.Patient has had vomiting for the last 3 days. States that it initially started after he ate spicy chicken wings. No diarrhea or abdominal pain. He is complaining of bilateral hand pain and spasming. He is having difficulty opening his hands. He has no chronic health conditions. No chest pain or difficulty breathing. No URI-like symptoms. No fever. (Fide Velarde) - Related Data Previous Rx's Medication Instructions Recorded Metoclopramide [Reglan] 10 mg PO TID PRN #15 tab 01/02/23 Sucralfate [Carafate] 1 gm PO ACHS #12 ml 01/02/23 Ondansetron Odt [Zofran Odt] 4 mg PO Q8HR PRN #10 tab 01/04/23 Ondansetron Odt [Zofran Odt] 4 mg PO Q8HR PRN #15 tab 04/14/23 Ondansetron Odt [Zofran Odt] 4 mg PO Q8HR PRN #20 tab 06/03/23 Allergies Allergy/AdvReac Type Severity Reaction Status Date / Time No Known Allergies Allergy Verified 04/14/23 13:25 Review of Systems ROS Other: All systems not noted in ROS Statement are negative. <Susannah Pacheco - Last Filed: 06/03/23 16:37> ROS Other: All systems not noted in ROS Statement are negative. <Fide Velarde - Last Filed: 06/04/23 04:37> ROS Statement: Those systems with pertinent positive or pertinent negative responses have been documented in the HPI. Past Medical History Past Medical History: No Reported History History of Any Multi-Drug Resistant Organisms: None Reported Past Surgical History: No Surgical Hx Reported Past Psychological History: No Psychological Hx Reported Smoking Status: Never smoker, Vaper Past Alcohol Use History: None Reported Past Drug Use History: Marijuana <Susannah Pacheco - Last Filed: 06/03/23 16:37> General Exam Limitations: no limitations <Susannah Pacheco - Last Filed: 06/03/23 16:37> General appearance: alert, in distress (Patient is yelling and stating he is in pain) Head exam: Present: atraumatic, normocephalic Eye exam: Present: normal appearance Neck exam: Present: normal inspection Respiratory exam: Present: normal lung sounds bilaterally. Absent: respiratory distress, wheezes, rales, rhonchi, stridor Cardiovascular Exam: Present: regular rate, normal rhythm, normal heart sounds. Absent: systolic murmur, diastolic murmur, rubs, gallop, clicks Extremities exam: Present: tenderness (Patient is having spasming and pain in the bilateral hands) Neurological exam: Present: alert, oriented X3 Psychiatric exam: Present: normal affect, normal mood Skin exam: Present: warm, dry <Fide Velarde - Last Filed: 06/04/23 04:37> - General Exam Comments Initial Comments: Visual Physical Exam Vital signs reviewed General: Well-appearing, nontoxic, no acute distress. Head: Normocephalic, atraumatic Eyes: PERRLA, EOMI ENT: Airway patent Chest: Nonlabored breathing Skin: No visual rash, normal skin tone Neuro: Alert and oriented 3 Musculoskeletal: Patient is unable to freely move his hands as the wrists are flexed (Susannah Pacheco) Course Vital Signs 06/03/23 16:16 Temperature 98.8 F Pulse Rate 72 Respiratory 20 Rate Blood Pressure 153/89 O2 Sat by Pulse 98 Oximetry Medical Decision Making <Susannah Pacheco - Last Filed: 06/03/23 16:37> - Lab Data Result diagrams: 06/03/23 16:37 06/03/23 16:37 <Fide Velarde - Last Filed: 06/04/23 04:37> - Medical Decision Making I performed the quick note portion of this chart. Electronically signed by Susannah Pacheco PA-C (Susannah Pacheco) Was pt. sent in by a medical professional or institution ([facility], [employer], urgent care, hospital, or [facility]...) When possible be specific @ -No Did you speak to anyone other than the patient for history (EMS, parent, family, police, friend...)? What history was obtained from this source @ -No Did you review nursing and triage notes (agree or disagree)? Why? @ -I reviewed and agree with nursing and triage notes Were old charts reviewed (outside hosp., previous admission, EMS record, old EKG, old radiological studies, urgent care reports/EKG's, [facility] records)? Report findings @ -No old charts were reviewed Differential Diagnosis (chest pain, altered mental status, abdominal pain women, abdominal pain men, vaginal bleeding, weakness, fever, dyspnea, syncope, headache, dizziness, GI bleed, back pain, seizure, CVA, palpatations, mental health, musculoskeletal)? @ -Differential includes gastroenteritis, DKA, appendicitis, cholecystitis, pancreatitis, this is not an all-inclusive list EKG interpreted by me (3pts min.). @ -As above X-rays interpreted by me (1pt min.). @ -None done CT interpreted by me (1pt min.). @ -None done U/S interpreted by me (1pt. min.). @ -None done What testing was considered but not performed or refused? (CT, X-rays, U/S, labs)? Why? @ -None What meds were considered but not given or refused? Why? @ -None Did you discuss the management of the patient with other professionals (professionals i.e. [facility], [employer], lab, RT, psych nurse, certified social workers in health care, netbackup admin, teacher, customer service security officer, wrapper caser)? Give summary @ -No Was smoking cessation discussed for >3mins.? @ -No Was critical care preformed (if so, how long)? @ -No Were there social determinants of health that impacted care today? How? (Homelessness, low income, unemployed, alcoholism, drug addiction, transportation, low edu. Level, literacy, decrease access to med. care, [place] [facility], rehab)? @ -No Was there de-escalation of care discussed even if they declined (Discuss DNR or withdrawal of care, Hospice)? DNR status @ -No What co-morbidities impacted this encounter? (DM, HTN, Smoking, COPD, CAD, Cancer, CVA, ARF, Chemo, Hep., AIDS, mental health diagnosis, sleep apnea, morbid obesity)? @ -None Was patient admitted / discharged? Hospital course, mention meds given and route, prescriptions, significant lab abnormalities, going to OR and other pertinent info. @ -22-year-old male presenting with chief complaint of nausea and vomiting. He is having carpopedal spasms. Workup is initiated by triage WBC 14.1, may be reactive. Patient shows signs of dehydration including sodium 133, carbon dioxide 33 anion gap of 19 BUN 39. Urine shows 3+ ketones likely due to dehydration. Patient is given Zofran, IV fluids, Toradol, Norflex. On reassessment he is resting comfortably and reports that his symptoms have resolved. He would like to be discharged home. Follow-up with PCP. Report back to ER with any new or worsening symptoms. Discussed return parameters and answered all questions. Patient conveyed verbal understanding and agreed to the plan. I discussed this case in detail with my attending Dr. Jones Undiagnosed new problem with uncertain prognosis? @ -No Drug Therapy requiring intensive monitoring for toxicity (Heparin, Nitro, Insulin, Cardizem)? @ -No Were any procedures done? @ -No Diagnosis/symptom? @ -Nausea and vomiting, carpopedal spasms Acute, or Chronic, or Acute on Chronic? @ -Acute Uncomplicated (without systemic symptoms) or Complicated (systemic symptoms)? @ -Uncomplicated Side effects of treatment? @ -No Exacerbation, Progression, or Severe Exacerbation? @ -No Poses a threat to life or bodily function? How? (Chest pain, [place], [place], pneumonia, PE, COPD, DKA, ARF, appy, cholecystitis, CVA, Diverticulitis, Homicidal, Suicidal, threat to staff... and all critical care pts) @ -Low likelihood (Fide Velarde) - Lab Data Lab Results 06/03/23 06/03/23 06/03/23 Range/Units 16:37 16:37 20:25 WBC 14.1 H (4.0-11.0) k/uL RBC 5.81 (4.30-5.90) m/uL Hgb 17.0 (13.0-17.5) gm/dL Hct 48.1 (39.0-53.0) % MCV 82.8 (80.0-100.0) fL MCH 29.2 (25.0-35.0) pg MCHC 35.3 (31.0-37.0) g/dL RDW 12.0 (11.5-15.5) % Plt Count 360 (150-450) k/uL MPV 7.0 Neutrophils % 72 % Lymphocytes % 14 % Monocytes % 11 % Eosinophils % 0 % Basophils % 0 % Neutrophils # 10.2 H (1.3-7.7) k/uL Lymphocytes # 2.0 (1.0-4.8) k/uL Monocytes # 1.6 H (0-1.0) k/uL Eosinophils # 0.0 (0-0.7) k/uL Basophils # 0.0 (0-0.2) k/uL Sodium 133 L (137-145) mmol/L Potassium 3.6 (3.5-5.1) mmol/L Chloride 81 L (98-107) mmol/L Carbon Dioxide 33 H (22-30) mmol/L Anion Gap 19 mmol/L BUN 39 H (9-20) mg/dL Creatinine 1.06 (0.66-1.25) mg/dL Est GFR (CKD-EPI)AfAm >90 (>60 ml/min/1.73 sqM) Est GFR (CKD-EPI)NonAf >90 (>60 ml/min/1.73 sqM) Glucose 100 H (74-99) mg/dL POC Glucose (mg/dL) (70-110) mg/dL POC Glu Die Stamper ID Calcium 9.9 (8.4-10.2) mg/dL Phosphorus 4.6 H (2.5-4.5) mg/dL Magnesium 1.6 (1.6-2.3) mg/dL Total Bilirubin 3.1 H (0.2-1.3) mg/dL AST 33 (17-59) U/L ALT 30 (4-49) U/L Alkaline Phosphatase 96 (38-126) U/L Total Protein 9.1 H (6.3-8.2) g/dL Albumin 5.8 H (3.5-5.0) g/dL Urine Color Light Yellow Urine Appearance Clear (Clear) Urine pH 6.0 (5.0-8.0) Ur Specific [place] 1.018 (1.001-1.035) Urine Protein 1+ H (Negative) Urine Glucose (UA) Negative (Negative) Urine Ketones 3+ H (Negative) Urine Blood Trace H (Negative) Urine Nitrite Negative (Negative) Urine Bilirubin Negative (Negative) Urine Urobilinogen <2.0 (<2.0) mg/dL Ur Leukocyte Esterase Negative (Negative) Urine WBC 2 (0-5) /hpf Ur Squamous Epith Cells <1 (0-4) /hpf Hyaline Casts 1 (0-2) /lpf Urine Mucus Rare H (None) /hpf 06/03/23 Range/Units 21:27 WBC (4.0-11.0) k/uL RBC (4.30-5.90) m/uL Hgb (13.0-17.5) gm/dL Hct (39.0-53.0) % MCV (80.0-100.0) fL MCH (25.0-35.0) pg MCHC (31.0-37.0) g/dL RDW (11.5-15.5) % Plt Count (150-450) k/uL MPV Neutrophils % % Lymphocytes % % Monocytes % % Eosinophils % % Basophils % % Neutrophils # (1.3-7.7) k/uL Lymphocytes # (1.0-4.8) k/uL Monocytes # (0-1.0) k/uL Eosinophils # (0-0.7) k/uL Basophils # (0-0.2) k/uL Sodium (137-145) mmol/L Potassium (3.5-5.1) mmol/L Chloride (98-107) mmol/L Carbon Dioxide (22-30) mmol/L Anion Gap mmol/L BUN (9-20) mg/dL Creatinine (0.66-1.25) mg/dL Est GFR (CKD-EPI)AfAm (>60 ml/min/1.73 sqM) Est GFR (CKD-EPI)NonAf (>60 ml/min/1.73 sqM) Glucose (74-99) mg/dL POC Glucose (mg/dL) 105 (70-110) mg/dL POC Glu Die Stamper ID [place] Calcium (8.4-10.2) mg/dL Phosphorus (2.5-4.5) mg/dL Magnesium (1.6-2.3) mg/dL Total Bilirubin (0.2-1.3) mg/dL AST (17-59) U/L ALT (4-49) U/L Alkaline Phosphatase (38-126) U/L Total Protein (6.3-8.2) g/dL Albumin (3.5-5.0) g/dL Urine Color Urine Appearance (Clear) Urine pH (5.0-8.0) Ur Specific [place] (1.001-1.035) Urine Protein (Negative) Urine Glucose (UA) (Negative) Urine Ketones (Negative) Urine Blood (Negative) Urine Nitrite (Negative) Urine Bilirubin (Negative) Urine Urobilinogen (<2.0) mg/dL Ur Leukocyte Esterase (Negative) Urine WBC (0-5) /hpf Ur Squamous Epith Cells (0-4) /hpf Hyaline Casts (0-2) /lpf Urine Mucus (None) /hpf Disposition <Susannah Pacheco - Last Filed: 06/03/23 16:37> Is patient prescribed a controlled substance at d/c from ED?: No Time of Disposition: 23:42 <Fide Velarde - Last Filed: 06/04/23 04:37> Clinical Impression: Nausea & vomiting Disposition: HOME SELF-CARE Condition: Good Instructions (If sedation given, give patient instructions): Acute Nausea and Vomiting (ED) Additional Instructions: Follow-up with PCP. Report back to ER with any new or worsening symptoms. Take medication as prescribed. Prescriptions: Ondansetron Odt [Zofran Odt] 4 mg PO Q8HR PRN #20 tab PRN Reason: Nausea Referrals: Joseph Dias [Primary Care Provider] - 1-2 days
[2023-06-03 17:08] LABS: Basophils % (A) 0 %; Eosinophils % (A) 0 %; HCT 48.1 % (39.0-53.0); Lymphocytes % (A) 14 %; MCH 29.2 pg (25.0-35.0); MCHC 35.3 g/dL (31.0-37.0); MCV 82.8 fL (80.0-100.0); Monocytes # (A) 1.6 k/uL (0-1.0); Monocytes % (A) 11 %; Neutrophils # (A) 10.2 k/uL (1.3-7.7); Neutrophils % (A) 72 %; Platelet Count 360 k/uL (150-450); RBC 5.81 m/uL (4.30-5.90); WBC 14.1 k/uL (4.0-11.0)
[2023-06-03 18:02] LABS: AST 33 U/L (17-59); African American GFR (CKD) >90 (>60 ml/min/1.73 sqM); Albumin 5.8 g/dL (3.5-5.0); Alkaline Phosphatase 96 U/L (38-126); Anion Gap 19 mmol/L; Blood Urea Nitrogen 39 mg/dL (9-20); Calcium 9.9 mg/dL (8.4-10.2); Carbon Dioxide 33 mmol/L (22-30); Chloride 81 mmol/L (98-107); Glucose 100 mg/dL (74-99); Magnesium 1.6 mg/dL (1.6-2.3); Non-African American GFR(CKD) >90 (>60 ml/min/1.73 sqM); Phosphorus 4.6 mg/dL (2.5-4.5); Potassium 3.6 mmol/L (3.5-5.1); Sodium 133 mmol/L (137-145); Total Bilirubin 3.1 mg/dL (0.2-1.3); Total Protein 9.1 g/dL (6.3-8.2)
[2023-06-03 18:07] LABS: ALT 30 U/L (4-49)
[2023-06-03] MEDS: ONDANSETRON 4 MG/2 ML VIAL IVP STA (20:26)
[2023-06-03 21:22] LABS: Appearance,Urine Clear (Clear); Bilirubin,Urine Negative (Negative); Blood,Urine Trace (Negative); Color,Urine Light Yellow; Glucose,Urine (UA) Negative (Negative); Hyaline Casts,Urine 1 /lpf (0-2); Ketones,Urine 3+ (Negative); Leukocyte Esterase,Urine Negative (Negative); Mucus,Urine Rare /hpf; Nitrite,Urine Negative (Negative); Protein,Urine 1+ (Negative); Specific Gravity,Urine 1.018 (1.001-1.035); Squamous Epithelial Cell,Urine <1 /hpf (0-4); Urobilinogen,Urine <2.0 mg/dL (<2.0); WBC,Urine 2 /hpf (0-5)
[2023-06-03 21:30] LABS: Glucose,Whole Blood 105 mg/dL (70-110)
[2023-06-03] MEDS: ORPHENADRINE 30 MG/ML 2 ML VIAL IVP STA (21:40)
[2023-06-03] MEDS: SODIUM CHLORIDE 0.9% 2,000 ML IV ONE (21:42)
[2023-06-03] MEDS: KETOROLAC 15 MG/ML 1 ML VIAL IVP STA (23:26)
[2023-06-03] MEDS: ONDANSETRON 4 MG ODT STARTER PACK 2 TAB BTL PO STA (23:59)
== END 2023-06-04 00:20 | disposition home or self-care (01) ==
LOC: EC 16:06
DX: R11.2 Nausea with vomiting, unspecified (principal); F17.290 Nicotine dependence, other tobacco product, uncomplicated; F12.90 Cannabis use, unspecified, uncomplicated
CPT/HCPCS: 36415; 93005; 80053; 83735; 84100; 85025; 81001; 99284; 96374; 96375 ×2; 96361 ×2; J2360; J2405; J1885